=== PATIENT | female | born 1935 | race Asian ===

== ENCOUNTER 2016-12-08 06:41 | Emergency (ER) | payer MEDICARE, BC ==
[~2016-12-08] VITALS: Ht 157.5 cm; Wt 50.0 kg
[~2016-12-08 06:41] MED LIST: BIMA2.5D4 EACHEYE; LACT1CAP14 PO; SEVE800T8 PO; [UNRECOGNIZED DRUG - CODE] PO
[2016-12-08 08:00] LABS: BASOPHILS % 1.1 % (0.0-2.0); EOSINOPHILS % 1.8 % (0.0-5.0); HEMATOCRIT. 32.7 % (36.0-48.0); HEMOGLOBIN. 10.7 g/dL (12.0-16.0); LYMPHOCYTES % 15.1 % (20.0-50.0); MEAN CORPUSCULAR HEMOGLOBIN 31.4 pg (28.0-32.0); MEAN CORPUSCULAR HGB CONC 32.8 g/dL (31.0-37.0); MEAN CORPUSCULAR VOLUME 95.7 fL (81.0-99.0); MEAN PLATELET VOLUME 7.2 fl (7.4-10.4); PLATELET 198 x1000/uL (130-400); RED BLOOD CELL COUNT 3.41 mill/uL (4.2-5.4); RED CELL DISTRIBUTION WIDTH 14.9 % (11.6-14.6); WHITE BLOOD COUNT 5.6 x1000/uL (4.5-11.0)
[2016-12-08 08:10] LABS: CALCIUM 9.4 mg/dL (8.5-10.1); INR 1.1; PARTIAL THROMBOPLASTIN TIME 30.1 sec (24.0-34.0)
[2016-12-08 11:30] VITALS: BP 109/61
== END 2016-12-08 12:00 | disposition left against medical advice (07) ==
LOC: ER 06:42
DX: T82.838A Hemorrhage due to vascular prosthetic devices, implants and grafts, initial encounter (principal); N18.6 End stage renal disease; I11.0 Hypertensive heart disease with heart failure; I50.9 Heart failure, unspecified; Y84.1 Kidney dialysis as the cause of abnormal reaction of the patient, or of later complication, without mention of misadventure at the time of the procedure; Z90.49 Acquired absence of other specified parts of digestive tract; Z99.2 Dependence on renal dialysis; Z88.8 Allergy status to other drugs, medicaments and biological substances; Z91.041 Radiographic dye allergy status; Z91.013 Allergy to seafood; Z79.899 Other long term (current) drug therapy
CPT/HCPCS: 36415; 71010; 80048; 85025; 85610; 85730; 86850; 86900; 93005; 99285